=== PATIENT | male | born 2000 | race African-American/Black ===

== ENCOUNTER 2021-08-31 17:24 | Emergency (ER) | payer SELFPAY ==
[2021-08-31] MEDS ORDERED: Ondansetron ODT 4 MG TAB ONE (17:40)
[2021-08-31] MEDS ORDERED: Ibuprofen 800 MG TAB ONE (17:40)
[2021-08-31] MEDS ORDERED: Acetaminophen 500 MG TAB ONE (17:40)
== END 2021-08-31 18:59 | disposition home or self-care (01) ==
LOC: ERS 17:24
DX: J03.80 Acute tonsillitis due to other specified organisms (principal); B96.89 Other specified bacterial agents as the cause of diseases classified elsewhere; F17.210 Nicotine dependence, cigarettes, uncomplicated
CPT/HCPCS: 99283; Q0162

== ENCOUNTER 2021-11-23 10:56 | Emergency (ER) | payer SELFPAY | END 2021-11-23 14:08 | disposition home or self-care (01) | LOC: ERS 10:56 | DX: J02.9 Acute pharyngitis, unspecified (principal); F17.210 Nicotine dependence, cigarettes, uncomplicated; Z20.822 Contact with and (suspected) exposure to COVID-19 | CPT/HCPCS: 87081; 87430; 87804; 99283; U0003; U0005 ==